=== PATIENT | female | born 2000 | race Caucasian/White ===

== ENCOUNTER 2020-06-03 15:49 | Inpatient (IN) | payer OTHER ==
[2020-06-03] MEDS ORDERED: Butorphanol Tartrate 1 MG/ML VIAL SLOW IVP PRN (16:31)
[2020-06-03] MEDS ORDERED: Ondansetron PF 4 MG/2 ML Vial IVP PRN (16:31)
[2020-06-03] MEDS ORDERED: hydrALAZINE 20 MG/ML VIAL SLOW IVP PRN (16:31)
[2020-06-03] MEDS ORDERED: Promethazine HCl 25 MG/ML VIAL IM PRN (16:31)
[2020-06-03] MEDS ORDERED: Lidocaine 1% (PF) 30 ML VIAL SC PRN ×2 (16:31→16:35)
[2020-06-03] MEDS ORDERED: HYDROcodone/Acetaminophen 5/325 mg Tablet PO PRN ×2 (16:35)
[2020-06-03] MEDS ORDERED: Ibuprofen 800 MG TAB PO PRN (16:35)
[2020-06-03] MEDS ORDERED: hydrALAZINE 20 MG/ML VIAL ONE (16:49)
[2020-06-03] MEDS ORDERED: hydrALAZINE 20 MG/ML VIAL SLOW IVP SCH (17:00)
[2020-06-03 17:05] VITALS: BMI 40.6
[2020-06-03] MEDS ORDERED: NS w/ Oxytocin 30 units 500 ML IVPB PRN ×2 (17:08→17:09)
[2020-06-03] MEDS: Lactated Ringer's 1,000 ML IV SCH (17:13)
[2020-06-03 17:25] VITALS: BP 163/100
[2020-06-03 17:32] LABS: INR-International Normal Ratio 0.9; PTT 29.2 sec (22.9-36.1); Prothrombin Time 11.9 sec (12.0-14.7)
[2020-06-03 17:37] LABS: Mean Corpuscular HGB CONC 31.1 g/dL (32.0-36.0); Mean Corpuscular Hemoglobin 22.9 pg (27.0-31.0); Mean Corpuscular Volume 73.9 fL (78.0-98.0); Mean Platelet Volume 9.9 fL (7.4-10.4); Platelet Count 250 thou/uL (130-400); RBC Distribution Width 17.3 % (11.5-14.5); Red Blood Cell (RBC) Count 4.78 mill/uL (4.20-5.40); White Blood Cell (WBC) Count 13.7 thou/uL (4.8-10.8)
[2020-06-03] MEDS: Acetaminophen 500 MG TAB PO PRN ×2 (17:51→23:54)
[2020-06-03 18:06] LABS: Syphilis Antibody Nonreactive (Nonreactive); Syphilis Antibody Index 0.03 S/CO (<1.00 Non-Reactive)
[2020-06-03 18:07] LABS: HBSAg Index 0.24 S/CO (0-0.99); HIV (1/2) Antibody/Antigen Non-Reactive (NonReactive); HIV 1/2 INDEX 0.09 S/CO (<1.00); Hep B Surf Ag Non-Reactive S/CO (NonReactive)
[2020-06-03 18:39] LABS: Amphetamine Not Detected (NotDetected); Barbiturates Screen Not Detected (NotDetected); Benzodiazepine Screen Not Detected (NotDetected); Cocaine Metabolite Screen Not Detected (NotDetected); Medtox Control Line Valid? VALID (VALID); Medtox Reader # READER 1; Methadone Not Detected (NotDetected); Methamphetamine Not Detected (NotDetected); Opiate Screen Not Detected (NotDetected); Oxycodone Screen Not Detected (NotDetected); Phencyclidine (PCP) Not Detected (NotDetected); THC/Cannabinoid Screen Not Detected (NotDetected); Tricyclic Screen Not Detected (NotDetected)
[2020-06-03] MEDS ORDERED: Magnesium Sulfate 20 gm/500 ml 20 GM/500 ML BAG ONE (19:34)
[2020-06-03] MEDS ORDERED: Calcium Gluc 4.6 MEQ/10 ML (100 MG/ML) SLOW IVP PRN (19:38)
[2020-06-03] MEDS ORDERED: Magnesium Sulfate 20 GM/WATER 500 ML BAG IVPB SCH (19:45)
[2020-06-03] MEDS: Magnesium Sulfate 20 gm/500 ml 20 GM/500 ML BAG IVPB SCH (19:45)
[2020-06-03] MEDS ORDERED: NS w/ Oxytocin 30 units 500 ML IVPB SCH (20:00)
[2020-06-03] MEDS: Misoprostol 100 MCG TAB VAG SCH (21:49)
[2020-06-03 23:33] LABS: SARS-CoV-2 PCR by NAA Not Detected (NotDetected)
[2020-06-04] MEDS: Misoprostol 100 MCG TAB VAG SCH (01:09)
[2020-06-04] MEDS ORDERED: Fentanyl 4 mcg/Bup 0.1% Cadd 100 ML ONE ×2 (02:23→09:13)
[2020-06-04] MEDS ORDERED: Lactated Ringer's 500 ML IV PRN (02:53)
[2020-06-04] MEDS ORDERED: Ondansetron PF 4 MG/2 ML Vial IVP PRN ×2 (02:53→13:35)
[2020-06-04] MEDS ORDERED: Acetaminophen 325 MG TAB PO PRN (02:53)
[2020-06-04] MEDS ORDERED: ePHEDrine 50 MG/ML VIAL SLOW IVP PRN (02:53)
[2020-06-04] MEDS ORDERED: Promethazine HCl 25 MG/ML VIAL IM PRN ×2 (02:53→13:35)
[2020-06-04] MEDS ORDERED: Naloxone HCl 0.4 mg/ml Vial IVP PRN ×2 (02:53)
[2020-06-04] MEDS ORDERED: diphenhydrAMINE 50 MG/ML VIAL IVP PRN (02:53)
[2020-06-04] MEDS: Lactated Ringer's 1,000 ML IV SCH ×2 (02:58→20:10)
[2020-06-04] MEDS ORDERED: Communication Order-Pharmacy FS SCH (03:00)
[2020-06-04] MEDS ORDERED: Fentanyl 4 mcg/Bupivacaine 0.1% Cassette 100 ML EPIDURAL SCH (03:00)
[2020-06-04] MEDS: Magnesium Sulfate 20 gm/500 ml 20 GM/500 ML BAG IVPB SCH (03:15)
[2020-06-04] MEDS ORDERED: FLU VACC QS2020-21(6MOS UP)/PF 60 MCG/0.5 ML SYRINGE IM ONE (09:00)
[2020-06-04 10:36] LABS: INR-International Normal Ratio 0.9; PTT 25.8 sec (22.9-36.1); Prothrombin Time 12.8 sec (12.0-14.7)
[2020-06-04 12:01] LABS: DRVVT Confirm 28.3; HEX PHOS LA Tube 1 38.6 SEC; Hexagonal Phospholipid Neut 4.6 SEC (0-8.0)
[2020-06-04] MEDS ORDERED: Zolpidem Tartrate 5 MG TAB PO PRN (13:35)
[2020-06-04] MEDS ORDERED: Bisacodyl 10 MG SUPP PR PRN (13:35)
[2020-06-04] MEDS ORDERED: HYDROcodone/Acetaminophen 5/325 mg Tablet PO PRN ×2 (13:35)
[2020-06-04] MEDS ORDERED: Magnesium Sulfate 20 gm/500 ml 20 GM/500 ML BAG IVPB SCH (13:35)
[2020-06-04] MEDS ORDERED: Milk Of Magnesia 30 ML UDCUP PO PRN (13:35)
[2020-06-04] MEDS ORDERED: Adacel (T-DAP) 0.5 ML SYRINGE IM ONE (13:35)
[2020-06-04] MEDS ORDERED: Preparation H Ointment 28 GM TUBE PR PRN (13:35)
[2020-06-04] MEDS ORDERED: NS / Oxytocin 40 units/1000ml 1,000 ML IV SCH (13:35)
[2020-06-04] MEDS ORDERED: Calcium Gluconate 4.6 MEQ in Sodium Chloride 0.9% 100 ML IVPB PRN (13:35)
[2020-06-04] MEDS ORDERED: diphenhydrAMINE 25 MG CAP PO PRN (13:35)
[2020-06-04] MEDS ORDERED: hydrALAZINE 20 MG/ML VIAL SLOW IVP PRN (13:35)
[2020-06-04] MEDS ORDERED: Benzocaine-Menthol 82.5 ML CAN TOP PRN (13:35)
[2020-06-04 14:39] VITALS: TEMP 98.3
[2020-06-04] MEDS ORDERED: Ferrous Sulfate 325 MG TAB PO SCH (17:00)
[2020-06-04] MEDS: Ibuprofen 800 MG TAB PO SCH ×2 (20:11→22:19)
[2020-06-04] MEDS ORDERED: Docusate Calcium (SURFAK) 240 MG CAP PO SCH (21:00)
[2020-06-04] MEDS: Acetaminophen 500 MG TAB PO PRN (21:21)
[2020-06-05] MEDS: Lactated Ringer's 1,000 ML IV SCH (03:05)
[2020-06-05] MEDS: Ibuprofen 800 MG TAB PO SCH (04:53)
[2020-06-05] MEDS: Misoprostol 100 MCG TAB VAG SCH (05:00)
[2020-06-05] MEDS ORDERED: Prenatal Vitamin 1 TAB PO SCH (09:00)
[2020-06-05 19:09] LABS: Cardiolipin IgA Ab 7.4 APL-U/mL (<14 Negative); Cardiolipin IgG Ab 2.5 GPL-U/mL (<10 Negative); Cardiolipin IgM Ab 2.8 MPL-U/mL (<10 Negative); EliA APS New Method **** NEW METHOD ****; beta-2-Glycoprotein I IgG Ab 4.6 U/mL (<7 Negative)
[2020-06-08 14:17] LABS: Factor IX Test 178.3 % ACTIVE (56-149); Factor VIII Test 363.3 % ACTIVE (56-157)
== END 2020-06-05 08:39 | disposition home or self-care (01) | DRG 807 ==
LOC: L&D/OP 15:49 → L&D 19:59
PROVIDERS: ADMIT Obstetrics & Gynecology; ATTEND Obstetrics & Gynecology
PROC: 3E033VJ Introduction of Other Hormone into Peripheral Vein, Percutaneous Approach (ICD-10-PCS; 2020-06-03)
PROC: 3E0P7VZ Introduction of Hormone into Female Reproductive, Via Natural or Artificial Opening (ICD-10-PCS; 2020-06-03)
PROC: 10E0XZZ Delivery of Products of Conception, External Approach (ICD-10-PCS; principal; 2020-06-04)
DX: O36.4XX0 Maternal care for intrauterine death, not applicable or unspecified (principal); Z37.1 Single stillbirth; Z3A.34 34 weeks gestation of pregnancy; Z20.822 Contact with and (suspected) exposure to COVID-19; O99.52 Diseases of the respiratory system complicating childbirth; J45.909 Unspecified asthma, uncomplicated; O32.1XX0 Maternal care for breech presentation, not applicable or unspecified; O14.94 Unspecified pre-eclampsia, complicating childbirth; O13.4 Gestational [pregnancy-induced] hypertension without significant proteinuria, complicating childbirth; O77.0 Labor and delivery complicated by meconium in amniotic fluid; Z28.21 Immunization not carried out because of patient refusal; Z79.899 Other long term (current) drug therapy
CPT/HCPCS: 36415; 51702; 80306; 83735; 85240; 85250; 85384; 85598; 85610; 85613; 85730; 86146; 86147; 86780; 86850; 86900; 86901; 87340; 87389; 87635; 88307; 99285; J0360; J0595; J2405; J2550; J3475; U0003; U0005